=== PATIENT | female | born 1985 | race Caucasian/White ===

== ENCOUNTER → 2023-12-01 11:03 | Outpatient (BNVA) | payer BC, SELFPAY | PROVIDERS: Referring Provider Nurse Practitioner; Visit Provider Specialist | DX: R42 Dizziness and giddiness (principal); Z79.899 Other long term (current) drug therapy | CPT/HCPCS: 36415; 80183; 84439; 84481; 85651; 86160; 86162; 86235; 86255; 86376 ==

== ENCOUNTER → 2024-02-06 14:17 | Outpatient (BNVA) | payer BC, SELFPAY | PROVIDERS: Visit Provider Specialist | DX: R42 Dizziness and giddiness (principal); R56.9 Unspecified convulsions | CPT/HCPCS: 36415; 82607; 82652; 82746; 83516; 83519 ==